=== PATIENT | male | born 2005 | race Caucasian/White ===

== ENCOUNTER 2025-01-20 14:22 | Emergency (ER) | payer BC, SELFPAY ==
[2025-01-20 14:22] VITALS: BP 115/90; PULSE 74; RESP 15; TEMP 36.4; O2SAT 97
--- OUTSIDE RECORDS SUMMARY | 2025-01-20 14:24 | XMS_ITS | Clinical Summary ---
Author Organization [facility] Address [address] [place] [address] Care Team Providers Care Vat Tender Name Role Phone Elijah Chu MD Primary Care Provider Allergies No known active allergies Medications hydrocortisone 2.5 % cream Apply topically 2 (two) times daily. 4 Active triamcinolone (KENALOG) 0.1 % cream Apply topically 2 (two) times daily. 4 Active ondansetron (ZOFRAN-ODT) 4 MG disintegrating tablet Take 1 tablet (4 mg total) by mouth every 8 (eight) hours as needed for Nausea. 20 tablet 4 Active Active Problems No known active problems Family History Medical History Relation Comments Hypertension Father No Known Problems Mother Relation Status Comments Father Alive Mother Alive Social History Tobacco Use Types Packs/Day Years Used Date Smoking Tobacco: Never Smokeless Tobacco: Current Tobacco Cessation:Ready to Q uit: Not Asked; Counseling Given: Not Answered Alcohol Use Standard Drinks/Week Comments Yes 0 (1 standard drink = 0.6 oz pur e alcohol) often l AUDIT-C Answer Date Recorded Frequency of Alcohol Consumption Never 02/14/2019 Average Number of Drinks Not on file 019 Frequency of Binge Drinking Not on file 01/26 Sex and Gender Information Value Date Recorded Sex Assigned at Not on file 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 Gender Identity Not on file Sexual Orientation Not on file Last Filed Vital Signs Vital Sign Reading Time Taken Comments Blood Pressure 134/92 09/23/2023 11:30 PM CDT Pulse 86 09/23/2023 11:30 PM CDT Temperature 36.8 C (98.3 F) 09/23/2023 10:51 PM CDT Respiratory Rate 18 09/23/2023 10:51 PM CDT Oxygen Saturation 100% 09/23/2023 11:30 PM CDT Inhaled Oxygen Concentration - - Weight 108.9 kg (240 lb) 09/23/2023 10:51 PM CDT Height 190.5 cm (6' 3) 09/23/2023 10:51 PM CDT Body Mass Index 30 09/23/2023 10:51 PM CDT Plan of Treatment Health Maintenance Due Date Last Done Comments Annual Physical 2006 DTaP, Tdap and Td Vaccines (6 - Tdap) 2014 11/21/2007, 07/16/2004, 2003, Additional history exists Meningococcal B Vaccine (1 of 2 - Standard) 2019 Hepatitis C 2021 Hepatitis B Vaccines (1 of 3 - 19+ 3-dose series) 2022 COVID-19 Vaccine ( season) 2024 Meningococcal Vaccine Aged Out 10/11/2014 No kamila randee eligible based on patient's age to complete this topic HPV Vaccines Completed 12/14/2017, 10/11/2014 Pneumococcal Vaccine: Pediatrics (0 to 5 Years) and At-Risk Patients (6 to 49 Years) Aged Out No longer eligible based on patient's age to complete this topic RSV Immunizations Under 20 Months Aged Out No longer eligible based on patient's age to complete this topic Medical Devices Implanted Type Area Phone Screener Device Identifier Shelf Expiration Date Model / Serial / Lot 3.5 X 28 Lag Screw Implanted:Qty: 1 on 02/07/2020 by Domingo Yee DPM at [facility] Left: [facility] TeamPatent [id number] / / N/A Description:Verified by 3.5 X 14 Lock Screw Implanted:Qty: 2 on 02/07/2020 by Domingo Yee DPM at [facility] Left: [facility] TeamPatent [id number] / / N/A Description:Verified by 3.5 X 16 Lock Screw Implanted:Qty: 2 on 02/07/2020 by Domingo Yee DPM at [facility] Left: Foot [employer] [id number] / / N/A Description:Verified by Graft Bone Augment 3cc - [id number] Implanted:Qty: 1 on 02/07/2020 by Domingo Yee DPM at [facility] Left: Foot [employer] 05/26/2021 [id number] / / [id number] Description:Verified by Graft Bone Bonus Triad Cancellous Cortical 1cc Allograft - [id number] Implanted:Qty: 1 on 02/07/2020 by Domingo Yee DPM at [facility] Left: Foot [employer] 03/23/2024 [id number] / / [id number] Description:Verified by MD Puente Crosscheck Mjp Plate Implanted:Qty: 1 on 02/07/2020 by Domingo Yee DPM at [facility] Left: Foot [employer] [id number] / / N/A Description:Verified by Screw Synthes 3.5 Cortex S/Tap 38mm - [id number] Implanted:Qty: 1 on 02/07/2020 by Domingo Yee DPM at [facility] Left: Foot SYNTHES 204.838 / / N/A Description:Verified by Explanted Type Area Phone Screener Device Identifier Shelf Expiration Date Model / Serial / Lot K Wire Sofia 6 In X .062 In - [id number] Explanted:Qty: 1 on 02/07/[address] [facility] Left: Foot [employer] 08/24/2029 [id number] / / [id number] Description:Verified by Drill Bit Synthes 2.5 Qc 110mm Gold - [id number] Explanted:Qty: 1 on 02/07/2020 by Domingo Yee DPM at [facility] Left: Foot [employer] 310.25 / / N/A Description:Verified by Drill Bit Synthes 3.5 Qc 110mm - [id number] Explanted:Qty: 1 on 02/07/2020 by Domingo Yee DPM at [facility] Left: Foot [employer] 310.35 / / N/A Description:Verified by 1.6 K Wire Explanted:Qty: 1 on 02/07/2020 by Domingo Yee DPM at [facility] Left: Foot [employer] [id number] / / N/A Description:Verified by 2.5 Drill Bit Explanted:Qty: 1 on 02/07/[address] [facility] Left: Foot [employer] [id number] / / N/A Description:Verified by 2.8 Drill Bit Explanted:Qty: 1 on 02/07/2020 by Domingo Yee DPM at [facility] Left: Foot [employer] [id number] / / N/A Description:Verified by 1.1 Temp Fix Pins Explanted:Qty: 2 on 02/07/2020 by Domingo Yee DPM at [facility] Left: Foot [employer] [id number] / / N/A Description:Verified by Screw Synthes 3.5 Cortex S/Tap 36mm - [id number] Explanted:Qty: 1 on 02/07/2020 by Domingo Yee DPM at 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
--- OUTSIDE RECORDS SUMMARY | 2025-01-20 14:24 | XMS_ITS | Encounter Summary ---
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 Gender Identity Not on file Sexual Orientation Not on file documented as of this encounter Plan of Treatment Not on file documented as of this encounter Visit Diagnoses Not on filedocumented in this encounter Additional Health Concerns Infection Onset Date Last Indicated Resolved Time MRSA 07/12/2018 07/12/2018 documented as of this encounter Care Teams Console Assembler Relationship Specialty Start Date End Date Aundrea Meehan MD [address] [place] [phone] PCP - General PEDIATRICS 02/14/19 01/15/23 Elijah Chu MD [address] [place] [phone] PCP - General FAMILY PRACTICE 01/16/23 documented as of this encounter
--- NOTE | 2025-01-20 14:30 | ED_ITS ---
HPI - Skin/Abscess/Foreign Bdy General Chief complaint: Skin/Abscess/Foreign Body Stated complaint: rash Source: patient Mode of arrival: ambulatory Limitations: no limitations History of Present Illness HPI narrative: Patient is a 19-year-old male with a left hand rash for the past 5 days. Itching and irritation of that rash is present. Four distinct spots. MD complaint: rash Onset (ago): day(s) ( Five) Location: LUE ( hand) Severity: mild Severity scale (1-10): 2 Quality: burning and pruritic Pain Consistency: constant Relieving factors: none Exacerbating factors: none Context: other ( patient has left hand rash for the past 5 days) Associated symptoms: denies other symptoms Treatments prior to arrival: none Related Data Allergies Allergy/AdvReac Type Severity Reaction Status Date / Time No Known Allergies Allergy Verified 01/20/25 14:23 Review of Systems Review of Systems: All systems reviewed & are unremarkable except as noted in HPI and below Constitutional: Constitutional: Reports no additional constitutional complaints Eyes: Eyes: Reports no additional eye complaints ENT: Reports system reviewed and no additional complaints, except as documented Cardiovascular: Cardiovascular: Reports no additional cardiovascular complaints Respiratory: Respiratory: Reports no additional respiratory complaints Gastrointestinal: Gastrointestinal: Reports no additional gastrointestinal complaints Genitourinary: Genitourinary: Reports no additional male genitourinary complaints Musculoskeletal: Musculoskeletal: Reports no additional musculoskeletal complaints Integumentary/Breasts: Skin/Breast: Reports system reviewed and no additional complaints, except as docu Neurologic: Reports system reviewed and no additional complaints, except as documented Psychiatric: Psychiatric: Reports no additional psychiatric complaints Endocrine: Endocrine: Reports no additional endocrine complaints Hematologic/Lymphatic: Hematologic/Lymphatic: Reports no additional hematologic/lymphatic complaints Allergic/Immunologic: Allergic/Immunologic: Reports no additional allerg ic/immunologic complaints Exam Const: General: healthy appearing Nutritional Appearance: well nourished Orientation/consciousness: patient oriented x3 HENMT: Head: normal to inspection Ears: external ears normal Face/Nose/Sinus: Normal external nose present Eyes: Conjunctivae: conjunctivae normal Pupils: Equal, round and reactive pupils present EOM: EOMs intact bilaterally Neck: Neck: normal visual inspection Chest: Chest palpation & inspection: normal inspection of the chest Resp: Effort & Inspection: normal respiratory effort and not labored Auscultation: clear to auscultation bilaterally and no crackles Cardio: Rate: regular rate Rhythm: regular rhythm Heart sounds: no murmurs Skin: General skin exam: normal color Rashes: rash noted Wounds: no wounds Other: left hand thenar area of the webspace extensor surface has 4 distinct areas of erythema and redness to suggest early cellulitis Neuro: General: patient oriented x3, moves all extremities and no meningeal signs Extrem: General: normal to inspection Psych: Mental Status: mental status grossly normal Affect: normal affect Attitude: cooperative Course Vital Signs Vital signs: Vital Signs Temperature 36.4 C L 01/20/25 14:22 Pulse Rate 74 01/20/25 14:22 Respiratory Rate 15 01/20/25 14:22 Blood Pressure 115/90 01/20/25 14:22 Pulse Oximetry 97 01/20/25 14:22 Oxygen Delivery Room Air 01/20/25 14:22 Temperature 36.4 C L 01/20/25 14:22 Pulse Rate 74 01/20/25 14:22 Respiratory Rate 15 01/20/25 14:22 Blood Pressure 115/90 01/20/25 14:22 Pulse Oximetry 97 01/20/25 14:22 Oxygen Delivery Room Air 01/20/25 14:22 MDM - Skin/Abscess/Foreign Bdy MDM Narrative Medical decision making narrative: patient is a 19-year-old male with a left hand skin rash. We will proceed with Bactrim for antibiotic coverage at this time. Discharge Plan Discharge Clinical Impression: Cellulitis Qualifiers: Site of cellulitis: extremity Site of cellulitis of extremity: upper extremity Laterality: left Qualified Code(s): L03.114 - Cellulitis of left upper limb Patient Disposition: Home Condition: Stable Instructions: Antibiotic Form, Cellulitis (ED) Patient Language: Liberian Prescriptions: New sulfamethoxazole-trimethoprim [Bactrim DS] 800-160 mg tablet 1 tablet PO BID 7 Days Qty: 14 0RF Follow-up/Referrals: Kimberley,MD Elijah [Primary Care Provider] - Time of Disposition: 14:53
--- OUTSIDE RECORDS SUMMARY | 2025-01-20 14:31 | XMS_ITS | Clinical Summary ---
Author Organization [facility] Address [address] [place] [address] Care Team Providers Care Flight Attendant/Inflight Supervisor Name Role Phone Aundrea Meehan MD Primary Care Provider [phone] Source Comments [facility],non-owned Affiliates and Associated Physician Practices is amultiple site organization consisting of ambulatory clinics and hospital sitesin [place], [place], [place] and [place]. This disclosure is being madepursuant to the Care Everywhere program and may not contain all information available regarding this patient. Last updated 18.[facility] Medications * Be aware that medications may not be up to date on this document. Alwaysverify current medications with the patient. 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 Gender Identity Not on file Sexual Orientation Not on file Last Filed Vital Signs Vital Sign Reading Time Taken Comments Blood Pressure - - Pulse - - Temperature - - Respiratory Rate - - Oxygen Saturation - - Inhaled Oxygen Concentration - - Weight 74.3 kg (163 lb 12.8 oz) 02/16/2019 1:29 PM CDT Height 188 cm (6' 2) 02/16/2019 1:29 PM CDT Body Mass Index 21.03 02/16/2019 1:29 PM CDT Plan of Treatment Health Maintenance Due Date Last Done Comments HIV SCREENING 2018 HPV VACCINE (1 - Male 3-dose series) 2018 MENINGOCOCCAL (Group B) VACC INE SHARED DECISION-MAKING (1 of 2 - Standard) 2019 HEPATITIS C SCREENING 06/03/2021 DTAP/TDAP/TD VACCINES (1 - Tdap) 2022 HEPATITIS B VACCINE (1 of 3 - 19+ 3-dose series) 2022 COVID-19 VACCINE (1 - 2023-2 5 season) 2024 DEPRESSION SCREENING 06/27/2024 INFLUENZA VACCINE (#1) 2025 ZOSTER VACCINE (1 of 2) 2053 HIB VACCINE Aged Out No longer eligi ble based on patient's age to complete this topic MENINGOCOCCAL GROUPS A/C/Y/W VACCINE Aged Out No longer eligible b ased on patient's age to complete this topic PNEUMOCOCCAL VACCINE Aged Out No long er eligible based on patient's age to complete this topic Insurance [facility] Address: [facility] [address] [place] [phone] MEDICAID - [place] MEDICAID - OUT OF STATE Care Teams Flight Attendant/Inflight Supervisor Relationship Specialty Start Date End Date Aundrea Meehan MD [address] [place] [id number] PCP - General 02/17/19
== END 2025-01-20 14:55 | disposition home or self-care (01) ==
PROVIDERS: Emergency Provider Emergency Medicine; PCP Family Medicine
DX: L03.114 Cellulitis of left upper limb (principal)
CPT/HCPCS: 99283